=== PATIENT | female | born 1950 | race Caucasian/White ===

== ENCOUNTER 2021-06-29 15:19 | Inpatient (IN) ==
[2021-06-29 16:06] LABS: Basophils % 0.3 %; Hemoglobin 13.7 g/dL (11.5-15.4); Mean Corpuscular Volume 92.7 fL (83.0-100.0)
[2021-06-29 16:07] LABS: VBG HCO3 28 mEq/L (21-27); VBG PCO2 52 mmHg (41-51); VBG PH 7.33 pH Units (7.32-7.42); VBG PO2 31 mmHg (25-50)
[2021-06-29 16:08] LABS: Hematocrit 40.7 % (35.3-44.9); Immature Granulocytes % 0.3 % (0-4); Immature Platelets 4.5 % (1.1-6.1); Lymphocytes # 0.5 K/mcL (0.6-4.6); Lymphocytes % 13.8 %; Mean Corpuscular HGB Conc 33.7 g/dL (31.6-35.5); Mean Corpuscular Hemoglobin 31.2 pg (28.0-33.3); Mean Platelet Volume 9.6 fL (9.4-12.4); Monocytes # 0.6 K/mcL (0.0-1.3); Neutrophils # 2.5 K/mcL (1.6-8.9); Platelet Count 148 K/mcL (140-400); Red Blood Count 4.39 M/mcL (3.82-4.97); Red Cell Distribution Width 12.7 % (11.5-14.5); Segmented Neutrophils % 68.6 %; White Blood Count 3.7 K/mcL (4.3-11.1)
[2021-06-29 16:40] LABS: Alanine Aminotransferase 25 Units/L (7-52); Albumin 3.8 g/dL (3.5-5.7); Albumin/Globulin Ratio 1.4 (1.1-2.2); Alkaline Phosphatase 70 Units/L (34-104); Aspartate Amino Transferase 56 Units/L (13-39); BUN/Creatinine Ratio 15 (6-26); Bilirubin,Direct 0.1 mg/dL (0.0-0.2); Bilirubin,Indirect 0.2 mg/dL (0.0-1.0); Bilirubin,Total 0.3 mg/dL (0.3-1.0); Blood Urea Nitrogen 16 mg/dL (8-23); Carbon Dioxide 26 mEq/L (23-29); Chloride 100 mEq/L (98-107); Creatine Kinase 539 Units/L (30-223); Ethanol < 10 mg/dL (Less than 10); Globulin 2.7 g/dL (2.4-3.5); Glucose 94 mg/dL (70-105); Magnesium 1.9 mg/dL (1.6-2.6); Osmolality,Calculated 295 (280-300); Potassium 3.4 mEq/L (3.5-5.1); Sodium 142 mEq/L (136-145); Total Protein 6.5 g/dL (6.4-8.9); Troponin I < 0.03 ng/mL (< 0.04); eGFR For African Americans > 60 (> 60); eGFR For Non-African Americans 52 (> 60)
[2021-06-29] MEDS ORDERED: Doxycycline 100 MG in 0.9 % Sodium Chloride Mini Bag 100 ML IVPB ONE (17:43)
[2021-06-29] MEDS ORDERED: Acetaminophen 325 MG TABLET PO ONE (17:55)
[2021-06-29 17:58] LABS: Bacteria,Urine Few per hpf (None-Few); Bilirubin,Urine Small (Negative); Blood,Urine Moderate (Negative); Clarity,Urine Clear (Clear); Color,Urine Yellow (Yellow); Glucose,Urine (UA) Normal (Normal); Ketones,Urine >150 mg/dL (Negative); Leukocyte Esterase,Urine Negative (Negative); Mucus,Urine Few per lpf (None-Few); Nitrite,Urine Negative (Negative); Protein,Urine 200 mg/dL (Neg-Trace); Specific Gravity,Urine 1.026 (1.010-1.025); Squamous Epithelial Cell,Urine Few per hpf (None-Few); WBC,Urine 0-3 per hpf (0-3)
[2021-06-29 18:06] LABS: Amphetamine Screen,Urine Negative ng/mL (Cutoff=1000); Barbiturate Screen,Urine Negative ng/mL (Cutoff=200); Benzodiazepines Screen,Urine Negative ng/mL (Cutoff=200); Cannabinoid Screen,Urine Negative ng/mL (Cutoff = 50); Cocaine Screen,Urine Negative ng/mL (Cutoff= 300); Opiate Screen,Urine Negative ng/mL (Cutoff=300); Phencyclidine Screen,Urine Negative ng/mL (Cutoff=25)
[2021-06-29] MEDS ORDERED: 0.9 % Sodium Chloride 1,000 ML IVC ONE (18:07)
[2021-06-29] MEDS ORDERED: Melatonin 3 MG TABLET PO PRN (18:38)
[2021-06-29] MEDS ORDERED: Naloxone 0.4 MG/ML INJ IVP PRN (18:38)
[2021-06-29] MEDS ORDERED: 0.9 % Sodium Chloride 1,000 ML IVC SCH (18:45)
[2021-06-29 19:06] LABS: C-Reactive Protein 293 mg/L (Less than 10); Ferritin 787 ng/mL (10-120); Lactate Dehydrogenase 266 Units/L (140-271)
[2021-06-29] MEDS: cefTRIAXone 1,000 MG in Water for inj. (sterile) 10 ML IVP SCH ×2 (19:08→19:12)
[2021-06-29 19:18] LABS: INR 1.1; Prothrombin Time 12.2 Seconds (9.4-12.1)
[2021-06-29] MEDS ORDERED: RANITIDINE HCL 150 MG PO SCH (21:00)
[2021-06-29] MEDS ORDERED: *HR* LORazepam 1 MG TABLET PO SCH (21:00)
[2021-06-30] MEDS: *HR* Enoxaparin 40 MG/0.4 ML SYRINGE SQ SCH (04:46)
[2021-06-30] MEDS: Lactobacillus 1 EACH CAP.SPRINK PO SCH ×3 (04:46→09:51)
[2021-06-30] MEDS: Acetaminophen 325 MG TABLET PO PRN (04:47)
[2021-06-30 05:24] LABS: Hemoglobin 13.5 g/dL (11.5-15.4); Mean Platelet Volume 9.9 fL (9.4-12.4); Red Cell Distribution Width 12.7 % (11.5-14.5)
[2021-06-30 05:26] LABS: Hematocrit 40.5 % (35.3-44.9); Immature Platelets 4.7 % (1.1-6.1); Mean Corpuscular HGB Conc 33.3 g/dL (31.6-35.5); Mean Corpuscular Hemoglobin 30.9 pg (28.0-33.3); Mean Corpuscular Volume 92.7 fL (83.0-100.0); Red Blood Count 4.37 M/mcL (3.82-4.97); White Blood Count 3.5 K/mcL (4.3-11.1)
[2021-06-30 05:44] LABS: Alanine Aminotransferase 23 Units/L (7-52); Albumin 3.6 g/dL (3.5-5.7); Albumin/Globulin Ratio 1.4 (1.1-2.2); Alkaline Phosphatase 66 Units/L (34-104); Aspartate Amino Transferase 51 Units/L (13-39); BUN/Creatinine Ratio 17 (6-26); Bilirubin,Direct 0.1 mg/dL (0.0-0.2); Bilirubin,Indirect 0.2 mg/dL (0.0-1.0); Bilirubin,Total 0.3 mg/dL (0.3-1.0); Blood Urea Nitrogen 15 mg/dL (8-23); Calcium 8.6 mg/dL (8.6-10.3); Carbon Dioxide 28 mEq/L (23-29); Chloride 101 mEq/L (98-107); Creatine Kinase 475 Units/L (30-223); Globulin 2.6 g/dL (2.4-3.5); Glucose 90 mg/dL (70-105); Magnesium 1.8 mg/dL (1.6-2.6); Osmolality,Calculated 292 (280-300); Potassium 3.3 mEq/L (3.5-5.1); Sodium 141 mEq/L (136-145); Total Protein 6.2 g/dL (6.4-8.9); eGFR For African Americans > 60 (> 60); eGFR For Non-African Americans > 60 (> 60)
[2021-06-30] MEDS ORDERED: levoFLOXacin 750 MG TABLET PO ONE (06:15)
[2021-06-30] MEDS: Ondansetron 4 MG/2 ML VIAL IVP PRN (08:20)
[2021-06-30] MEDS ORDERED: ATIVAN 1 MG PO SCH (09:00)
[2021-06-30] MEDS ORDERED: DEXILANT 60 MG PO SCH (09:00)
[2021-06-30] MEDS: DILANTIN 100 MG PO SCH ×2 (09:56→20:47)
[2021-06-30] MEDS ORDERED: 0.9 % Sodium Chloride 1,000 ML IVC SCH (11:00)
[2021-06-30] MEDS: LORAZEPAM 1 MG PO SCH ×2 (17:00→20:47)
[2021-07-01] MEDS: Acetaminophen 325 MG TABLET PO PRN ×2 (01:57→14:27)
[2021-07-01] MEDS: *HR* Enoxaparin 40 MG/0.4 ML SYRINGE SQ SCH (05:12)
[2021-07-01] MEDS: LORAZEPAM 1 MG PO SCH ×3 (07:59→21:34)
[2021-07-01] MEDS: DILANTIN 100 MG PO SCH ×2 (08:00→21:34)
[2021-07-01] MEDS ORDERED: Potassium Phosphate 44 MEQ in 0.9 % Sodium Chloride 250 ML IVPB ONE (08:36)
[2021-07-01] MEDS ORDERED: levoFLOXacin 750 MG TABLET PO SCH (09:00)
[2021-07-02] MEDS: *HR* Enoxaparin 40 MG/0.4 ML SYRINGE SQ SCH (05:20)
[2021-07-02] MEDS: LORAZEPAM 1 MG PO SCH ×3 (07:25→20:44)
[2021-07-02] MEDS: DILANTIN 100 MG PO SCH ×2 (07:25→20:38)
[2021-07-02] MEDS: Lactobacillus 1 EACH CAP.SPRINK PO SCH (07:25)
[2021-07-02] MEDS: Ondansetron 4 MG/2 ML VIAL IVP PRN (07:34)
[2021-07-02 07:58] LABS: BUN/Creatinine Ratio 14 (6-26); Blood Urea Nitrogen 9 mg/dL (8-23); Calcium 8.6 mg/dL (8.6-10.3); Carbon Dioxide 26 mEq/L (23-29); Chloride 101 mEq/L (98-107); Glucose 83 mg/dL (70-105); Magnesium 1.5 mg/dL (1.6-2.6); Osmolality,Calculated 290 (280-300); Phosphorous 1.5 mg/dL (2.7-4.5); Potassium 3.3 mEq/L (3.5-5.1); Sodium 141 mEq/L (136-145); eGFR For African Americans > 60 (> 60); eGFR For Non-African Americans > 60 (> 60)
[2021-07-02] MEDS ORDERED: levoFLOXacin 750 MG TABLET PO SCH (09:00)
[2021-07-02 15:41] LABS: Thyroid Stimulating Hormone 0.957 mcIU/mL (0.340-5.600)
[2021-07-02] MEDS ORDERED: 0.9 % Sodium Chloride 1,000 ML IVC SCH (18:00)
[2021-07-03 05:34] LABS: BUN/Creatinine Ratio 17 (6-26); Blood Urea Nitrogen 9 mg/dL (8-23); Calcium 7.9 mg/dL (8.6-10.3); Carbon Dioxide 25 mEq/L (23-29); Chloride 104 mEq/L (98-107); Glucose 82 mg/dL (70-105); Magnesium 1.8 mg/dL (1.6-2.6); Osmolality,Calculated 292 (280-300); Phosphorous 2.3 mg/dL (2.7-4.5); Potassium 3.5 mEq/L (3.5-5.1); Sodium 142 mEq/L (136-145); eGFR For African Americans > 60 (> 60); eGFR For Non-African Americans > 60 (> 60)
[2021-07-03] MEDS: *HR* Enoxaparin 40 MG/0.4 ML SYRINGE SQ SCH (05:47)
[2021-07-03 07:12] VITALS: PULSE 90
[2021-07-03] MEDS ORDERED: *HR* Enoxaparin 40 MG/0.4 ML SYRINGE SQ SCH (08:00)
[2021-07-03] MEDS: Lactobacillus 1 EACH CAP.SPRINK PO SCH (08:54)
[2021-07-03] MEDS: LORAZEPAM 1 MG PO SCH ×2 (08:55→15:44)
[2021-07-03] MEDS: DILANTIN 100 MG PO SCH (08:57)
[2021-07-03 15:40] VITALS: BP 142/89; TEMP 98.8; O2SAT 92
== END 2021-07-03 17:08 | disposition other institution (70) | DRG 871 ==
LOC: CDU 15:19 → EMEROOARM 15:19 → SUATTDRO 18:19 → CDU 20:25 → 3BNU 07-01 02:37
PROVIDERS: ADMIT Internal Medicine; ATTEND Internal Medicine

== ENCOUNTER 2022-04-16 11:07 | Observation (INO) ==
[2022-04-16] MEDS ORDERED: 0.9 % Sodium Chloride 500 ML IVC ONE (11:21)
[2022-04-16] MEDS ORDERED: Aspirin 81 MG TAB.CHEW PO ONE (11:21)
[2022-04-16 12:10] LABS: Basophils % 0.5 %; Eosinophils # 0.1 K/mcL (0.0-0.6); Hematocrit 42.2 % (35.3-44.9); Hemoglobin 13.7 g/dL (11.5-15.4); Immature Granulocytes % 0.4 % (0-4); Lymphocytes # 0.8 K/mcL (0.6-4.6); Lymphocytes % 14.2 %; Mean Corpuscular HGB Conc 32.5 g/dL (31.6-35.5); Mean Corpuscular Hemoglobin 31.4 pg (28.0-33.3); Mean Corpuscular Volume 96.6 fL (83.0-100.0); Mean Platelet Volume 10.2 fL (9.4-12.4); Monocytes # 0.6 K/mcL (0.0-1.3); Monocytes % 10.9 %; Platelet Count 163 K/mcL (140-400); Red Blood Count 4.37 M/mcL (3.82-4.97); Red Cell Distribution Width 12.9 % (11.5-14.5); White Blood Count 5.6 K/mcL (4.3-11.1)
[2022-04-16] MEDS ORDERED: *HR* LORazepam 1 MG TABLET PO ONE (12:15)
[2022-04-16 12:17] LABS: INR 1.1; Prothrombin Time 11.9 Seconds (9.4-12.1)
[2022-04-16 12:42] LABS: Alanine Aminotransferase 10 Units/L (7-52); Albumin 4.3 g/dL (3.5-5.7); Alkaline Phosphatase 93 Units/L (34-104); Aspartate Amino Transferase 13 Units/L (13-39); BUN/Creatinine Ratio 16 (6-26); Bilirubin,Direct 0.1 mg/dL (0.0-0.2); Bilirubin,Indirect 0.3 mg/dL (0.0-1.0); Bilirubin,Total 0.4 mg/dL (0.3-1.0); Blood Urea Nitrogen 14 mg/dL (8-23); Calcium 9.3 mg/dL (8.6-10.3); Carbon Dioxide 30 mEq/L (23-29); Chloride 101 mEq/L (98-107); Globulin 2.1 g/dL (2.4-3.5); Glucose 86 mg/dL (70-105); Lipase 13 Units/L (11-82); Osmolality,Calculated 290 (280-300); Potassium 3.8 mEq/L (3.5-5.1); Sodium 140 mEq/L (136-145); Total Protein 6.4 g/dL (6.4-8.9); eGFR For African Americans > 60 (> 60); eGFR For Non-African Americans > 60 (> 60)
[2022-04-16 13:14] LABS: Troponin I < 0.03 ng/mL (< 0.04)
[2022-04-16 13:24] LABS: Bilirubin,Urine Negative (Negative); Blood,Urine Small (Negative); Clarity,Urine Clear (Clear); Color,Urine Light-Yellow (Yellow); Glucose,Urine (UA) Normal (Normal); Ketones,Urine 60 mg/dL (Negative); Leukocyte Esterase,Urine Negative (Negative); Mucus,Urine Few per lpf (None-Few); Nitrite,Urine Negative (Negative); PH,Urine 6.5 pH Units (5.0-8.0); Protein,Urine Negative (Neg-Trace); Specific Gravity,Urine 1.015 (1.010-1.025); Urobilinogen,Urine Normal (Normal); WBC,Urine 0-3 per hpf (0-3)
[2022-04-16] MEDS ORDERED: Naloxone 0.4 MG/ML INJ IVP PRN (13:53)
[2022-04-16] MEDS ORDERED: Ondansetron 4 MG/2 ML VIAL IVP PRN (14:11)
[2022-04-16 15:52] LABS: Magnesium 2.1 mg/dL (1.6-2.6); Phosphorous 3.5 mg/dL (2.7-4.5)
[2022-04-16 17:09] LABS: Thyroid Stimulating Hormone 1.225 mcIU/mL (0.340-5.600)
[2022-04-16] MEDS: *HR* Heparin 5,000 UNIT/ML VIAL SQ SCH (18:13)
[2022-04-16] MEDS: Pantoprazole 40 MG VIAL IVP SCH (18:14)
[2022-04-16] MEDS ORDERED: *HR* LORazepam 2 MG/ML VIAL IVP ONE (22:40)
[2022-04-17] MEDS: *HR* Heparin 5,000 UNIT/ML VIAL SQ SCH ×2 (06:09→17:18)
[2022-04-17] MEDS: Pantoprazole 40 MG VIAL IVP SCH (08:46)
[2022-04-17] MEDS ORDERED: Azithromycin 250 MG TABLET PO PRN (09:07)
[2022-04-17] MEDS: *HR* LORazepam 1 MG TABLET PO SCH ×4 (09:31→21:16)
[2022-04-17 23:33] VITALS: O2SAT 98
[2022-04-17] MEDS: DEXILANT 60 MG PO SCH (23:47)
[2022-04-18] MEDS: *HR* Heparin 5,000 UNIT/ML VIAL SQ SCH (06:18)
[2022-04-18] MEDS: DEXILANT 60 MG PO SCH (06:21)
[2022-04-18 07:55] VITALS: BP 122/73; PULSE 73; TEMP 98.2
[2022-04-18] MEDS: *HR* LORazepam 1 MG TABLET PO SCH (08:37)
== END 2022-04-18 10:29 | disposition home health service (06) ==
LOC: EMEROOARM 11:07 → 3BNU 11:07 → SUATTDRO 13:58 → 3BNU 14:40
PROVIDERS: ADMIT General Practice; ATTEND Internal Medicine